=== PATIENT | female | born 1930 | race Caucasian/White ===

== ENCOUNTER → 2018-03-24 | Outpatient (CLI) | payer MEDICARE, OTHER ==
[~2018-03-24] MED LIST: BISHYD5 PO; CALCAVITDA PO; CLON.1 PO; COUMADIN PO; Calcium + Vita1 EACH PO; Coq-10100 MG PO; Crestor PO; DILT60 PO; DISO100ER; DISO100ER PO; DISO150 PO; ELIQUIS5 MG PO; ESCI10 PO; ESTR2 PO; ESTRADIOL; HYDACE10B PO; HYDACE5; HYDACE5 PO; HYDCHL25 PO; LIDO5TP TOP; LISI20 PO; LISI5; OMEP20ER PO; PROM25; ROSU10TA PO; UBID100 PO; WARF4 PO; WARF5
== END ==
LOC: LAB SHORT 18:11 → LAB EV 18:11
DX: R30.0 Dysuria (principal)
CPT/HCPCS: 87077; 87086; 87186

== ENCOUNTER → 2018-11-29 | Outpatient (CLI) | payer MEDICARE, OTHER ==
[~2018-11-29] MED LIST changes: +Augmentin 875-1 EACH PO; +CALCIUM 600 +1 EA11 PO; +DILT120ERA PO; +Flonase 0.05% N16 GM; +HYDCHL12.5 PO; +LOSA50 PO; +ONDA4ODT MM; +TOLT4 PO; +VIT1CAPS12 PO; +VITAMIN D31000 UNIT PO; +Zofran8 MG PO
== END ==
LOC: LAB SHORT 14:22 → LAB EV 14:22
DX: N39.0 Urinary tract infection, site not specified (principal)
CPT/HCPCS: 87077; 87086; 87186

== ENCOUNTER → 2021-03-31 | Outpatient (CLI) | payer OTHER | END | disposition home or self-care (01) | LOC: LAB SHORT 13:11 | DX: L90.5 Scar conditions and fibrosis of skin (principal); L28.0 Lichen simplex chronicus | CPT/HCPCS: 88305; 88312 ==